=== PATIENT | male | born 1960 | race Caucasian/White ===

== ENCOUNTER 2020-04-04 17:51 | Emergency (ER) | payer MEDICAID ==
[~2020-04-04] VITALS: Ht 182.9 cm; Wt 67.1 kg
--- NOTE | 2020-04-04 18:22 | NUR ---
pt rec'd to er via ems smoked heroin today found unresponsive narcan given in the field awake now drinking wter in bed talking to police
[2020-04-04 18:24] VITALS: BP 120/75
== END 2020-04-04 19:41 | disposition home or self-care (01) ==
LOC: ER 17:54
DX: T40.601A Poisoning by unspecified narcotics, accidental (unintentional), initial encounter (principal); Z59.0 Homelessness; Y92.89 Other specified places as the place of occurrence of the external cause